=== PATIENT | female | born 1990 | race Caucasian/White ===

== ENCOUNTER 2017-05-12 10:45 | Emergency (ER) | payer SELFPAY ==
[~2017-05-12] VITALS: Ht 160 cm; Wt 68.1 kg
[2017-05-12] MEDS ORDERED: SODIUM CHLORIDE 0.9% 1,000 ML IV ONE (11:13)
[2017-05-12] MEDS ORDERED: SODIUM CHLORIDE 0.9% 1,000ML IVBOLUS ONE (11:30)
[2017-05-12] MEDS ORDERED: MORPHINE SULFATE 4 MG/ML, 1ML IVPush PRN (11:30)
[2017-05-12] MEDS ORDERED: ONDANSETRON 2MG/ML, 2ML IVPush ONE (11:30)
[2017-05-12] MEDS ORDERED: SODIUM CHLORIDE FLUSH 10ML SYR IVF ONE (11:30)
[2017-05-12] MEDS ORDERED: ONDANSETRON 2MG/ML, 2ML ONE (11:31)
[2017-05-12] MEDS ORDERED: MORPHINE SULFATE 4 MG/ML, 1ML ONE ×2 (11:32→12:53)
[2017-05-12 11:40] LABS: HEMATOCRIT 44.7 % (34.6-47.8); HEMOGLOBIN 15.1 g/dL (11.7-16.4); WHITE BLOOD COUNT 13.1 x10^3/uL (3.4-10)
[2017-05-12 11:52] LABS: ASPARTATE AMINO TRANSFERASE 19 U/L (15-37); BLOOD UREA NITROGEN 12 mg/dL (7-18)
[2017-05-12 14:24] VITALS: BP 104/63
== END 2017-05-12 14:26 | disposition home or self-care (01) ==
LOC: ED 12:05
DX: A08.4 Viral intestinal infection, unspecified (principal); E86.9 Volume depletion, unspecified
CPT/HCPCS: 36415; 80053; 81001; 83690; 84703; 85025; 96361; 96374; 96375; 99285; J2405; J7030

== ENCOUNTER 2017-06-02 20:20 | Emergency (ER) | payer SELFPAY ==
[~2017-06-02] VITALS: Ht 160 cm; Wt 63.3 kg
[2017-06-02] MEDS ORDERED: LORazepam 1MG TABLET PO ONE (21:30)
[2017-06-02] MEDS ORDERED: LORazepam 1MG TABLET ONE (21:38)
[2017-06-02 21:48] VITALS: BP 105/75
== END 2017-06-02 21:51 | disposition home or self-care (01) ==
LOC: ED 21:45
DX: F41.9 Anxiety disorder, unspecified (principal)
CPT/HCPCS: 93005; 99283

== ENCOUNTER 2020-12-04 05:21 | Emergency (ER) | payer MEDICAID ==
[2020-12-04] MEDS ORDERED: PROPARACAINE OPHTH 0.5%, 15ML ONE (05:41)
[2020-12-04] MEDS ORDERED: FLUORESCEIN OPHTHALMIC 1 MG STRIP ONE (05:41)
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
[2020-12-04] MEDS ORDERED: ONDANSETRON ODT 4 MG ONE (06:20)
[2020-12-04] MEDS ORDERED: ACETAMINOPHEN 500 MG TABLET ONE (06:21)
--- NOTE | 2020-12-04 06:24 | NUR ---
PT TO RADIOLOGY AT THIS TIME. REPORTS VOMITTING AND THEN URINATING SELF IN ROOM. ERP AWARE AND NEW ORDERS PROVIDED FOR WHEN PT IS BACK FROM RADIOLOGY.
[2020-12-04] MEDS ORDERED: PROPARACAINE OPHTH 0.5%, 15ML RIGHTEYE ONE (06:30)
[2020-12-04] MEDS ORDERED: ONDANSETRON ODT 8 MG PO ONE (06:30)
[2020-12-04] MEDS ORDERED: ACETAMINOPHEN 500 MG TABLET PO ONE (06:30)
[2020-12-04] MEDS ORDERED: ONDANSETRON ODT 8 MG ONE (06:34)
[2020-12-04 06:38] VITALS: BP 103/76
--- NOTE | 2020-12-04 06:38 | NUR ---
PT BACK FROM CT. ETOH BREATHALYZER 0.175, PT MEDICATED PER OCT. VSS. NAD, NO OTHER CHANGES IN CONDITION, WCTM. WAITING FOR CT RESULTS.
--- NOTE | 2020-12-04 06:48 | NUR ---
REPORT TO BEATRIZ COLES, PT CARE TRANSFERRED AT THIS TIME.
--- NOTE | 2020-12-04 08:18 | NUR ---
DISCHARGE INSTRUCTIONS REVIEWED, PT VERBALIZED UNDERSTANDING. AMBULATORY TO DISCHARGE DESK WITH STEADY GAIT, ACCOMPANIED BY FATHER.
== END 2020-12-04 08:19 | disposition home or self-care (01) ==
LOC: ED 07:27
DX: S00.11XA Contusion of right eyelid and periocular area, initial encounter (principal); S09.90XA Unspecified injury of head, initial encounter; Y04.8XXA Assault by other bodily force, initial encounter; Y93.89 Activity, other specified; Y92.410 Unspecified street and highway as the place of occurrence of the external cause; Y99.8 Other external cause status
CPT/HCPCS: 70450; 70480; 99285; Q0162

== ENCOUNTER 2020-12-07 12:12 | Emergency (ER) | payer MEDICAID ==
[~2020-12-07] VITALS: Ht 160 cm; Wt 75.9 kg
--- NOTE | 2020-12-07 12:18 | NUR ---
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
--- NOTE | 2020-12-07 12:30 | NUR ---
PT AMBULATORY TO ROOM FROM TRIAGE. PT CHANGED INTO GOWN, MONITORS IN PLACE. NADN. CALL LIGHT WITHIN REACH. Addendum: 12/07/20 at 1249 by [email or web address] PT AMBULATORY TO ROOM FROM TRIAGE. PT CHANGED INTO GOWN, MONITORS IN PLACE. NADN. CALL LIGHT WITHIN REACH. PT IS CALM AND COOPERATIVE.
--- NOTE | 2020-12-07 12:35 | NUR ---
PA AT BS
--- NOTE | 2020-12-07 12:38 | NUR ---
CASTING CHIPPER CALLED FOR EVALUATION
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
[2020-12-07 12:54] LABS: BASOPHILS % (AUTO) 1 % (0-1); EOSINOPHILS % (AUTO) 4 % (1-7); LYMPHOCYTES % (AUTO) 27 % (22-44); MD NO; MEAN CORPUSCULAR HEMOGLOBIN 29.8 pg (27.0-34.8); MEAN CORPUSCULAR HGB CONC 34.4 g/dL (32.4-35.8); MEAN PLATELET VOLUME 7.4 fL (7.4-10.4); MONOCYTES % (AUTO) 7 % (2-9); NEUTROPHILS % (AUTO) 62 % (42-75); PLATELET COUNT 333 x10^3/uL (130-400); RED BLOOD COUNT 4.15 x10^6/uL (3.82-5.3); RED CELL DISTRIBUTION WIDTH 13.4 % (9.6-15.2)
--- NOTE | 2020-12-07 12:56 | NUR ---
SW AT BEDSIDE
[2020-12-07 13:05] LABS: ALANINE AMINOTRANSFERASE 22 U/L (12-78); ALBUMIN 3.3 g/dL (3.4-5.0); ANION GAP 5 mmol/L (5-15); CALCIUM 8.7 mg/dL (8.5-10.1); CHLORIDE 112 mmol/L (98-107); SALICYLATE LEVEL 1.7 mg/dL (2.8-20.0)
[2020-12-07 13:16] LABS: ALKALINE PHOSPHATASE 73 U/L (45-117); BILIRUBIN,TOTAL 0.2 mg/dL (0.2-1.0); CREATININE 0.66 mg/dL (0.55-1.02); TOTAL PROTEIN 6.9 g/dL (6.4-8.2)
--- NOTE | 2020-12-07 13:20 | NUR ---
assumed care of pt, report from Brianna COLES pt here for anxiety. pt currently sitting up on gurney in no apparent distress. SW has been to bedside. no family at bedside
--- NOTE | 2020-12-07 13:30 | NUR ---
psych SAFETY RISK LEAD at bedside for eval
--- NOTE | 2020-12-07 13:50 | NUR ---
psych CYBER SECURITY ENGINEER remians at bedside
[2020-12-07] MEDS ORDERED: CLON1TAB PO (14:04)
[2020-12-07] MEDS ORDERED: DOXE3TAB4 PO (14:04)
[2020-12-07] MEDS ORDERED: CITA20TA9 PO (14:04)
[2020-12-07] MEDS ORDERED: CITALOPRAM 20 MG TABLET ONE (14:11)
--- NOTE | 2020-12-07 14:14 | NUR ---
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
[2020-12-07 15:22] VITALS: BP 111/66
[2020-12-08] MEDS ORDERED: CITALOPRAM 20 MG TABLET PO SCH (09:00)
== END 2020-12-07 15:27 | disposition home or self-care (01) ==
LOC: ED 12:14
DX: F41.1 Generalized anxiety disorder (principal); F43.11 Post-traumatic stress disorder, acute; R94.31 Abnormal electrocardiogram [ECG] [EKG]; Z72.9 Problem related to lifestyle, unspecified
CPT/HCPCS: 36415; 80053; 80299; 80320; 80329; 84443; 84703; 85025; 93005; 99284; G0480

== ENCOUNTER 2020-12-18 04:33 | Emergency (ER) | payer MEDICAID ==
[~2020-12-18] VITALS: Ht 160 cm; Wt 76.0 kg
[~2020-12-18 04:33] MED LIST: CITA20TA9 PO; CLON1TAB PO; DOXE3TAB4 PO
[2020-12-18] MEDS ORDERED: HYDROcodone/APAP 5/325 TABLET PO ONE (05:30)
[2020-12-18] MEDS ORDERED: HYDROcodone/APAP 5/325 TABLET ONE (05:40)
--- NOTE | 2020-12-18 06:55 | NUR ---
Report from SANKET Deleon. Pt resting in bed, BEHZAD.
[2020-12-18 07:43] VITALS: BP 108/85
== END 2020-12-18 07:46 | disposition home or self-care (01) ==
LOC: ED 05:08
DX: S63.511A Sprain of carpal joint of right wrist, initial encounter (principal); W01.0XXA Fall on same level from slipping, tripping and stumbling without subsequent striking against object, initial encounter; Y93.89 Activity, other specified; Y92.410 Unspecified street and highway as the place of occurrence of the external cause; Y99.8 Other external cause status
CPT/HCPCS: 29125; 99283

== ENCOUNTER 2020-12-19 12:48 | Emergency (ER) | payer MEDICAID ==
[~2020-12-19] VITALS: Ht 160 cm; Wt 76.2 kg
[2020-12-19 13:00] VITALS: BP 107/59
[2020-12-19] MEDS ORDERED: HYDROcodone/APAP 5/325 TABLET ONE ×2 (13:25→13:28)
[2020-12-19] MEDS ORDERED: HYDROcodone/APAP 5/325 TABLET PO ONE (13:30)
== END 2020-12-19 14:23 | disposition home or self-care (01) ==
LOC: ED 14:00
DX: S63.521A Sprain of radiocarpal joint of right wrist, initial encounter (principal); W01.0XXA Fall on same level from slipping, tripping and stumbling without subsequent striking against object, initial encounter; Y93.89 Activity, other specified; Y92.410 Unspecified street and highway as the place of occurrence of the external cause; Y99.8 Other external cause status
CPT/HCPCS: 29125; 99283

== ENCOUNTER 2020-12-31 19:28 | Emergency (ER) | payer MEDICAID ==
[~2020-12-31] VITALS: Ht 160 cm; Wt 74.8 kg
[2020-12-31 19:34] VITALS: BP 114/65
[2020-12-31] MEDS ORDERED: IBUPROFEN 200 MG TABLET PO ONE (20:00)
[2020-12-31] MEDS ORDERED: ACETAMINOPHEN 325 MG TABLET PO ONE (20:00)
[2020-12-31] MEDS ORDERED: IBUPROFEN 600 MG TABLET ONE (20:06)
[2020-12-31] MEDS ORDERED: ACETAMINOPHEN 325 MG TABLET ONE (20:07)
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
== END 2020-12-31 20:33 | disposition home or self-care (01) ==
LOC: ED 20:13
DX: J02.8 Acute pharyngitis due to other specified organisms (principal); B97.89 Other viral agents as the cause of diseases classified elsewhere; R19.7 Diarrhea, unspecified
CPT/HCPCS: 87081; 87880; 99283

== ENCOUNTER 2021-01-03 06:13 | Emergency (ER) | payer MEDICAID ==
[~2021-01-03] VITALS: Ht 160 cm; Wt 73.2 kg
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
--- NOTE | 2021-01-03 06:50 | NUR ---
CARE TRANSFERED TO BARI COLES
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
[2021-01-03 08:01] VITALS: BP 105/70
== END 2021-01-03 07:00 | disposition home or self-care (01) ==
LOC: ED 06:50
DX: B34.9 Viral infection, unspecified (principal); Z20.822 Contact with and (suspected) exposure to COVID-19
CPT/HCPCS: 99283; U0003; U0005

== ENCOUNTER 2021-04-08 10:55 | Emergency (ER) | payer MEDICAID ==
[~2021-04-08] VITALS: Ht 160 cm; Wt 73.6 kg
[2021-04-08 10:59] VITALS: BP 129/75
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
--- NOTE | 2021-04-08 11:17 | NUR ---
ERP AT BS FOR EVAL
--- NOTE | 2021-04-08 11:41 | NUR ---
Patient given discharge instructions and RX, they have confirmed that they understand the instructions. Patient ambulatory with steady gait.
== END 2021-04-08 11:42 | disposition home or self-care (01) ==
LOC: ED 11:34
DX: F41.0 Panic disorder [episodic paroxysmal anxiety] (principal); Z76.0 Encounter for issue of repeat prescription
CPT/HCPCS: 99281; 99283